=== PATIENT | male | born 1950 | race African-American/Black ===

== ENCOUNTER 2016-07-19 23:56 | Inpatient (IN) | payer MEDICARE ==
--- NOTE | ~2016-07-19 | CO ---
Unit #: [id number] #: [id number] Patient: KENNEDY YEH [id number] [address] [place], [place] [address] [id number] I MR#: [id number] NAME: KENNEDY YEH. ROOM: 310 Age: 65 Sex: M Admission Date: 07/20/2016 : 1950 Attending Physician: Sterling Hurtado M.D. Primary Care Physician: [facility]. Consultation Date: 07/20/2016 CONSULTATION REPORT REASON FOR CONSULTATION Aortic murmur. HISTORY OF PRESENT ILLNESS This is a 65-year-old male with history of end-stage renal dialysis that Dr. Carter did a heart catheterization back in 09/2013 that showed 50% stenosis in the first marginal branch of the circumflex with ejection fraction 45% and moderate aortic regurgitation, also he has history of hypertension, hyperlipidemia, nicotine abuse, who came to the emergency room with nausea, vomiting, diarrhea, or abdominal pain. The patient is on dialysis on Wednesday, , and Wednesday. Due to family issues and problems at home, he missed last and Wednesday dialysis treatment. He said he started having nausea, vomiting, and later diarrhea he has been having it for 2 days at home. He denies anyone else in the family with the symptoms. He denies any chest pain; pain in his neck, bilateral jaws, shoulders, arms, or elbow. He denies any palpitations. No dizziness, presyncope, or syncope. He did mention he had some diaphoresis with his diarrhea and epigastric abdominal pain. The patient was treated with Zofran, Protonix, morphine, one amp of D50 as well as regular insulin, bicarb, Kayexalate, calcium chloride in the emergency room, however, his symptoms eased off. On admission, the patient's BUN was 95 with a creatinine of 18.1, potassium is 6.1. EKG shows normal sinus rhythm, possible left atrial enlargement, and Q-waves noted in anteroseptal leads. CT of abdomen and pelvis shows likely acute enteritis. The patient's symptoms have improved. His diarrhea has lessened. He denies any chest pain; pain in his neck, bilateral jaws, shoulders, arms, or elbow. Denies any palpitations. No dizziness, presyncope, or syncope. Cardiology will full assist with evaluation and management. PAST MEDICAL HISTORY 1. Hypertension. 2. Hyperlipidemia. 3. End-stage renal disease, on hemodialysis, follows with Dr. Joyce. Has a history of noncompliance. 4. 10/10/[address] Carter shows LVEF of 45% with moderate aortic regurgitation with severe left ventricular hypertrophy plus 50% stenosis in the first marginal branch of the circumflex. 5. 10/10/2013, 2D echo, LVEF of 50% to 55% with moderate left ventricular hypertrophy, [id number] mitral regurgitation, mild tricuspid regurgitation, moderate aortic regurgitation. 6. 2013 cardiac cath showed mild aortic stenosis, 3+ aortic valve, and 3+ aortic regurgitation with aortic root dilatation. 7. Degenerative disk disease and arthritis. Unit #: [id number] #: [id number] Patient: KENNEDY YEH 8. Nicotine abuse. 9. Reformed alcohol abuse. Ambulates with a roller walker. Dr. Joyce initiated the patient on a dialysis treatment, which he has received today. The patient will get labs afterwards. It is noted on admission the patient's potassium was 6.1. After exam, Dr. Joyce wanted Cardiology to see the patient due to significant murmur over his aortic region. Also ordered a 2D echo. As mentioned, the patient knew that he had a regurgitation of his valve. Dr. Carter dictated on his catheterization summary that the aortic root is mildly to moderately dilated with moderate aortic regurgitation across 3+ cusp aortic valve and a trial of medical management with afterload reduction, beta blockers, and followup should be pursued and then later evaluate for possible aortic valve replacement if the symptoms did improve. PAST SURGICAL HISTORY AV shunt placement. HOME MEDICATIONS Aspirin 81 mg p.o. daily, metoprolol 50 mg p.o. b.i.d., pravastatin 80 mg p.o. daily, Sensipar 30 mg 2 tablets p.o. daily, Tums 500 mg p.o. t.i.d. ALLERGIES No known drug allergies. PHYSICAL EXAMINATION GENERAL: The patient is a 65-year-old male, in no acute respiratory distress. He is awake, alert, and oriented. VITAL SIGNS: Blood pressure on admission 165/99, this morning he is 99/66 that is during the dialysis, heart rate is in 80s to 90s, respirations 16. NECK: Trachea midline. No thyromegaly or lymphadenopathy. Conductive aortic murmur noted. HEART: S1, S2. Regular rate and rhythm. Slightly tachycardiac. Systolic murmur over aortic region and left sternal border. LUNGS: Very diminished. ABDOMEN: Slightly firm, tender with palpating, hyperactive bowel sounds. EXTREMITIES: Pedal pulses are palpable. No pedal edema. DIAGNOSTIC STUDIES LABORATORY RESULTS: Today's labs, glucose 101, BUN 95, creatinine 18.1, eGFR is 3.4, sodium 143, potassium 6.1, chloride is 99, CO2 is 20, calcium 7.3, total protein 7.7, albumin 3.8, bilirubin total 0.8, AST is 11, ALT is 8, alkaline phosphatase is 186. Note, this is from yesterday before dialysis. Next set is 1.1. WBCs 5.6, hemoglobin 13.6, hematocrit 41.4, and platelets is 235. IMAGING STUDIES: CT of abdomen and pelvis shows evidence of acute enteritis, extensive arterial calcifications within the abdomen and pelvis, multilevel advanced degenerative disk disease with at least moderate central canal stenosis in the L2 through L3, bilateral renal atrophy. CARDIOVASCULAR STUDIES: EKG shows normal sinus rhythm with ventricular rate of 78 beats per minute, left atrial enlargement, left ventricular hypertrophy, septal Q-waves, poor R-wave progression, nonspecific ST-T wave abnormalities, peak T-waves in anterolateral leads. IMPRESSION 1. Nausea, vomiting, diarrhea, acute enteritis. Unit #: [id number] #: [id number] Patient: KENNEDY YEH 2. End-stage renal disease, on hemodialysis. 3. Aortic regurgitation and mitral regurgitation. Last 2D echo on 10/10/2013 shows left ventricular ejection fraction of 50% to 55% with [id number]-tp-zefrra mitral regurgitation, moderate aortic regurgitation. 4. 10/10/2013 cardiac cath shows LVEF of 45%, moderate aortic regurgitation with 50% stenosis in the first marginal branch of the circumflex. 5. Hypertension. 6. Hyperlipidemia. 7. Nicotine abuse. 8. Reformed alcohol use. 9. Degenerative disk disease and arthritis. PLAN 1. Cardiology consulted to re-evaluate the patient's significant systolic murmur over aortic region. The patient has known moderate aortic regurgitation that was found on his echo and cardiac cath a couple of years ago. Also svepszas-cy-qixniz mitral regurgitation. We will reassess the severity of the mitral and aortic regurgitation and give recommendations after 2D echo has been performed. 2. On exam, there were no signs or symptoms of acute congestive heart failure or unstable angina. Cardiac enzymes are negative. EKG does not show anything acute. 3. The patient had dialysis today. We will draw labs post dialysis to monitor his electrolyte status. 4. Dr. Joyce is managing his dialysis. 5. His gastroenteritis has improved. He is tolerating oral food without any nausea, vomiting, or diarrhea today. 6. Continue the patient on metoprolol and aspirin and statin. He is on SCDs for DVT prophylaxis. 7. Further recommendations pending per Dr. Werner after she reviews his 2D echo. Dictated by... Dario Wynn/dalia TD: 07/21/2016 01:08 JOB #: [id number] CONSULTATION REPORT X Faviola Zamudio APRN CONSULTATION REPORT
--- NOTE | ~2016-07-19 | CO ---
Unit #: [id number] #: [id number] Patient: KENNEDY YEH [id number] [facility]. [address] [address] [id number] I MR#: [id number] NAME: KENNEDY YEH. ROOM: 310 Age: 65 Sex: M Admission Date: 07/20/2016 : 1950 Attending Physician: Sterling Hurtado M.D. Primary Care Physician: [facility]. CONSULTATION REPORT REASON FOR CONSULTATION Significant hyperkalemia. HISTORY OF PRESENT ILLNESS The patient is a 65-year-old male with significant past medical history of valvular heart disease, hypertension, hyperlipidemia, and diastolic dysfunction, mainly came to the ER with nausea, vomiting, and diarrhea going on for the last few days. Also has some increased weakness, decreased p.o. intake too. The patient has lost significant weight because of these things. The patient also has some diaphoretic. No swelling of the lower extremity, but there is some shortness of breath. The patient is on hemodialysis Tuesdays, , Wednesday and last dialysis was almost a week back. At the time of admission, the patient has potassium of 6.2 and BUN 95, creatinine was 18. When I saw the patient, he was already on dialysis. No other complaints. At this time, the patient's hyperkalemia was last night treated with sodium bicarbonate, Kayexalate, and calcium chloride. PAST MEDICAL HISTORY Significant for end-stage renal disease, valvular heart disease, hyperlipidemia, and diastolic dysfunctions. PAST SURGICAL HISTORY Significant for dialysis access placement. SOCIAL HISTORY The patient lives at home with his daughter. He is not drinking anymore. FAMILY HISTORY Noncontributory. ALLERGIES He is allergic to contrast. MEDICATIONS Home medications were reviewed and the patient is on Lopressor, pravastatin, and Sensipar. REVIEW OF SYSTEMS Already explained in the history of present illness. PHYSICAL EXAMINATION GENERAL: The patient is an elderly male, who was seen to have lost some weight with some temporal wasting, not in any acute Unit #: [id number] #: [id number] Patient: KENNEDY YEH distress. VITAL SIGNS: Last blood pressure is 99/66, pulse 96, temperature 97, respiratory rate 16. HEAD AND NECK: Pupils are reactive to light. Extraocular movements are intact. Mucous membrane is moist. NECK: Supple. CHEST: The patient has bilateral air entry with some crackles at the bases. HEART: Regular rate and rhythm with some ejection systolic murmur, which is very prominent. ABDOMEN: Soft, nontender. EXTREMITIES: Trace edema, otherwise unremarkable. Peripheral pulses are palpable. NEUROLOGIC: Grossly nonfocal. SKIN: Normal. DIAGNOSTIC STUDIES LABORATORY RESULTS: Showed the patient's creatinine is 18, potassium is 6.1, bicarb is 20. Calcium 7.3. Alkaline phosphatase is 186. Hemoglobin is 13. ASSESSMENT AND PLAN 1. Hyperkalemia. 2. Congestive heart failure with significant history of valvular heart disease. 3. End-stage renal disease. 4. Gastroenteritis with nausea, vomiting, diarrhea. DISCUSSION At this time, continue hemodialysis. We will get the Cardiology consult. We will repeat the echocardiogram. Follow up with the patient labs tomorrow morning. If the patient's echo has not significantly changed, Cardiology can take care of the patient for further evaluation. Next hemodialysis will be Wednesday. Thank you for letting me to evaluate regarding this patient. Dictated by... Juventino Hussein/dalia TD: 07/21/2016 03:26 JOB #: [id number] CONSULTATION REPORT X Héctor Joyce MD CONSULTATION REPORT
--- NOTE | ~2016-07-19 | EKG ---
PATIENT: KENNEDY YEH UNIT #: [id number] Ventricular Rate: 78 BPM Atrial Rate: 78 BPM P-R Interval: 154 ms QRS Duration: 88 ms Q-T Interval: 420 ms QTC Calculation(Bezet): 478 ms P [place]rea: 58 degrees Calculated R [place]: -26 degrees Calculated T [place]: 69 degrees Diagnosis Line: Normal sinus rhythm Diagnosis Line: Possible Left atrial enlargement Diagnosis Line: Cannot rule out Anteroseptal infarct (cited on or Diagnosis Line: before 19-OCT-2009) Diagnosis Line: Borderline ECG Diagnosis Line: When compared with ECG of 17-OCT-2013 05:48, Diagnosis Line: Questionable change in initial forces of Anterior Diagnosis Line: leads Diagnosis Line: Nonspecific T wave abnormality no longer evident Diagnosis Line: in Inferior leads Diagnosis Line: T wave inversion no longer evident in Diagnosis Line: Anterolateral leads Diagnosis Line: QT has shortened Diagnosis Line: Confirmed by JAVIER INFANTE MD ([id number]) on 07/20/2016 Diagnosis Line: 7:09:09 AM INTERPRETING MD: ARELIS ORDONEZ
--- NOTE | ~2016-07-19 | A ---
[facility] Nutrition Therapy DATE: 07/20/16 Patient: KENNEDY YEH Physician: EMILY Address: [address] Room/Bed: [address] [place] [address], Zip: [place] [address] Admit Date: 07/20/16 Date of : [birth year] Height: 5 9 Weight: 135 61.23 NUTRITIONAL ASSESSMENT: REASON: 1 POINTS NUTRITION SCREEN RISK RE: EATING POORLY 65 yo male admitted for n/v/d, hyperkalemia PMH: ESRD on HD, HTN, HLD, CHF, valvular heart disease, chronic anemia, CAD Anthropometrics: HT: 69" Adm wt: 54 kg BMI: 17.6 IBW: 72.7 kg, 74% IBW Labs: K+ 6.1 Cl- 99 BUN 95 Creat 18.1 Ca++ 7.3 GFR 3.4 Meds: Lipitor, Tums, NaCl I/O & Bowel function: none available, last BM 07/19 Skin Integrity: Shunt ANGELA Edema: none available Estimated Nutrition Needs: Increased due to low body weight and ESRD on HD Diet: Renal Assessment: Chart reviewed, events noted. RD spoke with the pt at bedside. Pt's HD RN at bedside reportedly weighed the pt this AM, and he weighed 54 kg (7.2 kg less than admission weight in [facility]). Pt presents underweight with BMI of 17.6 and 74% IBW. Pt reports that his weight has been declining for quite some time, and he is eating less due to decreased appetite. RD stressed the importance of adequate protein-calorie intake, and the pt voiced understanding. RD suggested smaller, more frequent meals and Nepro supplements. Pt is agreeable to Nepro BID, and actually already had one at bedside. Pt was working on his lunch at time of RD visit, had consumed ~30% so far per RD observation. Dx: Underweight RT increased nutrient needs, decreased appetite AEB BMI 17.6, 84% IBW, decreased intake reported by patient. Intervention: 1. Renal diet 2. Nepro supplements BID Monitoring, Evaluation and Goals: 1. Oral intake; tolerate >50-75% of meals and supplements 2. Labs; WNL [facility] Nutrition Therapy DATE: 07/20/16 Patient: KENNEDY YEH Physician: EMILY Address: [address] Room/Bed: [address] [place] [address], Zip: [place] [address] Admit Date: 07/20/16 Date of : [birth year] Height: 5 9 Weight: 135 61.23 3. Weight; promote weight gain, prevent weight loss 4. SKin; prevent breakdown 5. GI; promote bowel regularity Recommendations: 1. Continue renal diet as tolerated. 2. Nepro supplements (vanilla) BID for supplemental nutrition. 3. Pt would benefit from 6 small meals (smaller, more frequent meals), however, he declined at this time. Pt is at moderate nutritional risk. RD will follow hospital course. Respectfully, SHINE THORNTON, TARAN, LD [employer] [facility] cc: client file
--- NOTE | ~2016-07-19 | HP ---
Unit #: [id number] #: [id number] Patient: KENNEDY YEH [id number] [facility]. [place], [place] [address] [id number] I MR#: [id number] NAME: KENNEDY YEH. ROOM: 310 Age: 65 Sex: M Admission Date: 07/20/2016 : 1950 Attending Physician: Sterling Hurtado M.D. Primary Care Physician: [facility] HISTORY AND PHYSICAL CHIEF COMPLAINT Nausea, vomiting, and diarrhea. HISTORY OF PRESENT ILLNESS The patient is a 65-year-old male with past medical history of end-stage renal disease on dialysis Wednesday//Wednesday, valvular heart disease, essential hypertension, hyperlipidemia, diastolic dysfunction who presented to the emergency department due to nausea, vomiting, and diarrhea for two days. The patient states that due to family affair he had missed his and Wednesday dialysis and started to have symptoms of nausea, vomiting, diarrhea, and epigastric abdominal pain. Patient tells me that due to those symptoms, he presented to the emergency department. The patient also states that he has diaphoresis with the episodes. At this time, the patient states that they gave him something in the emergency department which had resolved all of his symptoms and he is symptom free at this time. He is followed by Dr. Joyce for his end-stage renal disease. Of note, he was given Zofran, Protonix, morphine, one amp of D50, as well as, regular insulin, bicarbonate, Kayexalate, calcium chloride in the emergency department. PAST MEDICAL HISTORY 1. Admitted to [facility] on December 26, 2012, for hyperkalemia as well as September 2013. 2. End-stage renal disease on dialysis, followed by Dr. Joyce. 3. Essential hypertension. 4. Valvular heart disease. 5. Hyperlipidemia. 6. Diastolic dysfunction. On echo on October 05, 2012, it showed impaired left ventricular relaxation, left ventricular systolic function with (1) . There was xzqi-fk-qqcwegag aortic regurgitation and trace tricuspid regurgitation. PAST SURGICAL HISTORY Denies all past surgical history except for last upper extremity dialysis access placement. SOCIAL HISTORY Patient states he lives at home with his daughter and her boyfriend. The patient admits to smoking currently half pack a day for more than 20 years. States that he quit drinking alcohol a couple years ago. Denies any other illicit drugs. Denies IV drugs specifically. FAMILY HISTORY Patient states family history is positive for essential hypertension, Unit #: [id number] #: [id number] Patient: KENNEDY YEH diabetes. Last H and P, he admitted to his mother having CVA. ALLERGIES He is allergic to contrast. He gets itchiness with it. HOME MEDICATIONS 1. The patient states he uses aspirin 81 mg daily. 2. Lopressor 50 mg twice daily. 3. Pravastatin, cannot recall a dose. From past discharge summary, says 40 mg orally daily. 4. Sensipar 30 mg orally daily. 5. Tums. REVIEW OF SYSTEMS Ten-point review of systems is negative except those indicated in HPI. At the time of my assessment, the patient states that all of his symptoms of nausea, vomiting, diarrhea, and epigastric pain had resolved. DIAGNOSTIC STUDIES LABORATORY: CBC: WBC 5.6, RBC 4.36, hemoglobin 13.6, hematocrit 41.4, MCV is 94.9, MCH is 31.3, MCHC 33, RDW 16.8, platelets 235,000, MPV is 8.6. Chem-7: Chloride 99, CO2 is 20, glucose 101, BUN 95, creatinine 18.8, calcium 7.3. AST 11, ALT 8, alkaline phosphatase 186, total bilirubin 0.8, total albumin 3.8, total protein 7.7, lipase 31, amylase 43. Lactic acid was 1.1. IMAGING: No imaging was done. CARDIOVASCULAR: EKG was done which revealed normal sinus rhythm with possible left atrial enlargement. PHYSICAL EXAMINATION VITAL SIGNS: Temperature is 98.2, pulse is 80, respiratory rate 19, blood pressure 149/82. GENERAL: The patient is an -Algerian male who is alert and oriented x4 in no apparent distress. He is alert, interactive, and appropriate. HEENT: The head is atraumatic. Mucous membranes are moist. There is poor dentition. NECK: Supple. Trachea is midline. CARDIOVASCULAR: Regular rate and rhythm. LUNGS: Clear to auscultation bilaterally with no increased work of breathing. ABDOMEN: Soft, nontender, nondistended with positive bowel sounds. No guarding. No rebound. EXTREMITIES: Nontender with no pedal edema. NEUROLOGIC: The patient is oriented x4. There are no focal deficits. SKIN: Skin of the extremities is warm and dry. ASSESSMENT The patient is a 65-year-old male with: 1. Hyperkalemia. 2. Acute on chronic renal failure due to noncompliance from missing his last two dialyses. 3. Likely acute gastroenteritis which has resolved at this time. 4. Coronary artery disease, single vessel, stable, no chest pain. 5. Chronic anemia, stable. Hemoglobin and hematocrit is as detailed above. Unit #: [id number] #: [id number] Patient: KENNEDY YEH 6. Cardiac valvular disease with moderate aortic regurgitation and otsexfto-am-sntcje mitral regurgitation, stable at this time without any peripheral edema. PLAN Dr. Joyce and Dr. Bates have been consulted for dialysis. We will follow their lead. Will check stool for Clostridium difficile. Dictated by Marielle Jain PA-C for Juventino Steele TD: 07/20/2016 10:03 JOB #: [id number] HISTORY AND PHYSICAL X X HISTORY AND PHYSICAL
--- NOTE | ~2016-07-19 | CT4 ---
[facility] A Service of [facility] & [facility] RADIOLOGY TEXT RESULTS PATIENT: KENNEDY YEH LOCATION: [facility] 310- : 52 UNIT #: [id number] AGE: [address]: Sterling Hurtado MD SEX: M ORDER DR: [id number] [facility] [address] [place], [place] [address] [id number] I MR#: [id number] Acc #: [id number] NAME: KENNEDY YEH. : 1950 SEX: M STUDY DATE/TIME: 07/20/2016 1:25 UNIT: C3A PCU ROOM: 310 STUDY DESCRIPTION: CT Abd and Pelv Wo Cont Attending Physician: Sterling Hurtado M.D. Ordering Physician: Jennie Cha M.D. Primary Care Physician: [facility] MEDICAL IMAGING REPORT This report is preliminary unless electronic signature is present EXAM CT abdomen and pelvis without IV contrast. COMPARISON CT chest dated October 12, 2013. INDICATIONS 65-year-old male with lower abdominal pain, nausea, emesis and diarrhea for [address] exam was performed with one or more of the following radiation dose reduction techniques: automatic exposure control, adjustment of mA and/or kV according to patient size, and iterative reconstruction. FINDINGS Axial CT imaging of the abdomen and pelvis was performed without IV contrast. Coronal and sagittal reformats were constructed. Lack of IV contrast limits evaluation of adenopathy, vasculature. There is a tiny fat-containing umbilical hernia. There are diffuse arterial calcification in the abdomen and pelvis with extension into the penis as well. The bones appear diffusely sclerotic, possibly sequela of chronic kidney disease. There is severe degenerative endplate change seen at L2-L3 and at the inferior endplate of L4 with moderate degenerative endplate disease at L5-S1. There is marked degenerative facet disease at L4-L5. Large posterior disc osteophyte complex is seen at L2-L3 causing at least moderate central canal narrowing. There are small posterior disc protrusions at L3-L4 through L5-S1. There is mild cardiomegaly. There is a small hiatal hernia. Unenhanced liver, gallbladder, spleen and adrenal glands are unremarkable. There is bilateral renal atrophy. There are multiple exophytic low-density lesions of the right kidney which are too small to characterize, favoring exophytic cysts. There is an exophytic simple cyst inferior pole left kidney measuring up to 6 mm. Multiple other exophytic low-density lesions extending from the left kidney STS. [facility] A Service of [facility] RADIOLOGY TEXT RESULTS PATIENT: KENNEDY YEH LOCATION: C3A 310-01 : 52 UNIT #: [id number] AGE: [address]: Sterling Hurtado MD SEX: M ORDER DR: consistent with simple cysts measuring up to 1.4 cm on the left. Incidental note of a splenule, normal anatomic variant. There is no hydronephrosis or hydroureter. No renal or ureteral calculus. Urinary bladder is unremarkable. Prostate gland is not well seen on this noncontrast exam. There is apparent fluid filling of the distal sigmoid colon and rectum. No evidence of acute appendicitis. There is air-fluid level and abnormal distension of proximal small bowel loops in the left upper quadrant of the abdomen, largest of which measures up to 3.5 cm. Proximal to this the jejunum appears abnormally thickened but this is diffuse in nature and may be within normal limits for this patient. There is no definite transition point of the distal small bowel to suggest a mechanical obstruction although this cannot entirely be excluded. The small bowel appears to taper distally to normal caliber. There is grossly stable diffuse prominence of the pancreatic duct measuring up to 4 mm. Diffuse arterial calcifications in the abdomen and pelvis with involvement of the abdominal aorta as well as the proximal, superior mesenteric and renal arteries. No free fluid in the abdomen or pelvis. No pneumoperitoneum. No visible adenopathy. IMPRESSION 1. There is mild abnormal dilatation with internal air-fluid level of proximal small bowel in the mid upper abdomen. This tapers distally to normal caliber and may reflect normal peristalsis or an acute ongoing enteritis. There is fluid filling of the rectum and distal sigmoid colon- other evidence suggestive of an acute enteritis. Proximal small bowel obstruction is thought to be unlikely but not entirely excluded. Clinical correlation recommended. 2. Extensive arterial calcifications within the abdomen and pelvis even extending into the penis, likely sequela of longstanding end-stage renal disease. 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 Clinical correlation recommended. 3. There are multilevel advanced degenerative disc and facet changes as well as degenerative endplate change of the lumbar spine as described in the body of the report. There are multiple level posterior disc protrusion with a large posterior disc osteophyte complex at L2-L3 which is causing at least moderate central canal stenosis. 4. Mild cardiomegaly. Very small hiatal hernia. 5. Stable prominence of the pancreatic duct measuring up to 4 mm, nonspecific finding. Pancreas is not well evaluated on current study without IV contrast. 6. Bilateral renal atrophy with multiple low-density lesions in the kidneys, not well characterized without IV contrast. Statistically these most likely represent multiple cysts. 7. Questionable thickening of the proximal jejunum upstream to the dilated small bowel. This is another finding that would suggest an acute enteritis. 1. [facility] A Service of [facility] RADIOLOGY TEXT RESULTS PATIENT: KENNEDY YEH LOCATION: [facility] 310-01 : 52 UNIT #: [id number] AGE: [address]: Sterling Hurtado MD SEX: M ORDER DR: Dictated by... Sharad Farfan M.D. THIS IS AN ELECTRONICALLY VERIFIED REPORT Sharad Farfan M.D. at 07/27/2016 10:04 AM Michael TD: 07/20/2016 09:45 JOB #: [id number] MEDICAL IMAGING REPORT COPY
--- NOTE | ~2016-07-19 | DS ---
Unit #: [id number] #: [id number] Patient: KENNEDY YEH [id number] [address] [place], [place] [address] [id number] I MR#: [id number] NAME: KENNEDY YEH. ROOM: 310 Age: 66 Sex: M Admission Date: 07/20/2016 : 1950 Discharge Date: 07/22/2016 Attending Physician: Sterling Hurtado M.D. Primary Care Physician: [facility]. DISCHARGE SUMMARY DISCHARGE DIAGNOSES 1. Acute on chronic renal failure in an end stage renal disease patient, secondary to noncompliance. Patient had missed the last two dialysis appointments. 2. Acute gastroenteritis with nausea, vomiting and diarrhea. 3. Known valvular heart disease, stable at this time. 4. Chronic anemia. 5. Hypercalcemia. 6. Coronary artery disease, single vessel disease. 7. Compliance, the patient had missed two previous dialysis appointments. CONSULTANTS Dr. Bates of nephrology and Dr. Werner of cardiology. PROCEDURES The patient had been receiving dialysis daily since he has been in here. DIAGNOSTIC STUDIES IMAGING STUDIES: Patient had a CT abdomen and pelvis on 07/20/2016 with impression of abnormal dilation of internal air-filled fluid of proximal small bowel in the mid upper abdomen, tapers distally. Normal caliber and reflects normal peristalsis or an acute ongoing enteritis. There is fluid of the rectum and distal sigmoid colon, suggesting acute enteritis. Extensive arterial calcifications within the abdomen and pelvis even extending into the penis, likely sequelae of longstanding end stage renal disease. Multilevel advanced degenerative disc and facet changes, as well as degenerative endplate change of the lumbar spine as described in the body of the report. Mild cardiomegaly. Very small hiatal hernia. Stable prominence of the pancreatic duct measuring up to 4 mm, nonspecific findings. Pancreas is not well evaluated from this CT given no IV contrast. Bilateral renal atrophy with mild low density lesions in the kidneys, not well characterized without IV contrast. Questionable thickening of the proximal jejunal upstream to the dilated small bowel, findings suggestive of acute enteritis. CARDIOLOGY STUDIES: The patient had a 2D echo performed, which revealed left ventricular systolic function is normal with visually estimated ejection fraction of 50% to 55%. Moderate concentric left ventricular hypertrophy, mildly dilated left atrium. Severe aortic regurgitation is noted. Mild mitral regurgitation is present. Mild tricuspid regurgitation is present. Mild pulmonic valvular regurgitation is present. Right ventricular systolic pressure is 36 mL. No evidence of pericardial effusion. Unit #: [id number] #: [id number] Patient: KENNEDY YEH LABORATORY STUDIES: On the day of discharge the patient's labs includes BMP with glucose of 58, BUN 42, creatinine 12.1, sodium 137, potassium 4.6, chloride 97, CO2 26, calcium 6.7. CBC with WBC of 6.6, rbc's 3.91, hemoglobin 12.1, hematocrit 37.1, MCV is 9.0, MCH 30.9, MCHC is 32.5, RDW is 16.2, platelet is 196, and PT is 3.5. I had ordered stool for C. diff but no samples were provided. HOSPITAL COURSE The patient is a 65-year-old male with a past medical history of end stage renal disease on dialysis, Wednesday, and Wednesday, valvular heart disease, essential hypertension, hyperlipidemia, diastolic dysfunction, presents to emergency department due to nausea, vomiting, and diarrhea for two days prior to hospitalization. Patient states they had a family affair, therefore, he missed his and Wednesday dialysis appointment and has had symptoms of nausea, vomiting, diarrhea, and epigastric pain since then. After he presented to the emergency department and was given "some medicine," which on chart is noted to be Zofran, protonic, morphine, amp of D5, insulin, bicarb, Kayexalate, and calcium chloride. He told me that his symptoms have resolved and was feeling much better the next day. He tells me is back to baseline due to his end stage renal disease and presenting labs of acute on chronic renal failure with BUN 95, creatinine 18.8, potassium of 6.1. He was admitted and Dr. Bates of nephrology had seen immediately after this and patient has been getting dialysis since admission every day due to his valvular disease and symptoms of nausea, vomiting, diarrhea; therefore, cardiology was consulted. He had a repeat echo to re-evaluate his valves with findings as stated above. At this time patient is quite stable and he is ready to be discharged home. DISCHARGE CONDITION Stable. I am asking the nurse to check on his dialysis appointment to see when will he need to show up for next dialysis appointment. DISCHARGE FOLLOWUP Followup with Dr. Werner in her office on 10/09/2016 at 11:15. Followup with primary care physician within one to two weeks at this appointment. DISCHARGE DIET Heart healthy and patient should continue with a low phosphorus, low potassium, and low sodium renal diet. DISCHARGE ACTIVITIES Resume activities as was prior to hospitalization as tolerated with ambulating every day. DISCHARGE MEDICATIONS 1. Toprol XL 50 mg orally twice daily. 2. Pravastatin 80 mg orally daily. 3. Sensipar 60 mg orally daily. 4. Aspirin 81 mg orally daily. 5. PhosLo 1334 mg orally 3 times daily with meals. 6. Stop the Tums. 7. Patient can followup vitamin D level with Dr. Bates, as well as phosphorus level with Dr. Bates. 8. Patient needs to have calcium carbonate 500 mg 2 tablets every 8 hours for the next two days, per nephrologies recommendations. Unit #: [id number] #: [id number] Patient: KENNEDY YEH Dictated by... Marielle Jain PA-C for Juventino Steele/sebastián TD: 07/24/2016 08:45 JOB #: [id number] DISCHARGE SUMMARY X X DISCHARGE SUMMARY
[~2016-07-19 23:56] MED LIST: ADVIL200 M2 PO; AMOXICILLIN500 M1 PO; ASPERDRINK81 MG PO; ASPIRIN81 M1 PO; BACTRIM DS TABL1 TA2 PO; CALCIUM500 MG PO; CLARITHROMYCIN500 MG PO; COMBIVENT MININEB INH; HYDRALAZINE HCL25 MG PO; HYDRALAZINE HCL50 MG PO; IBUPROFEN800 MG PO; ISOSORBIDE MONO20 MG PO; LISINOPRIL20 MG PO; LISINOPRIL5 MG PO; METOPROLOL TAR25 MG PO; METOPROLOL TART25 MG PO; NORVASC10 MG PO; PHOSLO667 MG PO; PRAVACHOL80 MG PO; PRAVASTATIN SOD40 MG PO; PREDNISONE10 MG/DOSE PO; PRINIVIL20 M1 PO; PROTONIX PO; SENSIPAR30 MG PO; SYMBICORT INH; TOPROL XL 50 MG50 M1 PO; TUCKS MEDICATE1 EACH TP; VICODIN 5/1 TAB 5/50 PO; [UNRECOGNIZED DRUG - CODE] PO
[2016-07-20] LABS: BASOPHIL% 0.4 % (0-2.5); EOSINOPHIL% 0.7 % (0.0-7.0); HEMATOCRIT 41.4 % (38.0-50.0); HEMOGLOBIN 13.6 gm/dL (13.0-16.0); LYMPHOCYTE# 0.7 X10e3 (1.0-3.5); LYMPHOCYTE% 12.5 % (17.0-45.0); MEAN CELL VOLUME 94.9 FL (83-96); MEAN CORPUSCULAR HEMOGLOBIN 31.3 PG (28-34); MEAN PLATELET VOLUME 8.6 FL (6.5-11.5); MONOCYTE# 0.2 X10e3 (0-1.0); MONOCYTE% 4.4 % (3.0-12.0); NEUTROPHIL# 4.6 X10e3 (1.5-7.1); PLATELET COUNT 235 X10e3 (140-420); RED BLOOD COUNT 4.36 X10e (3.90-5.60); RED CELL DISTRIBUTION WIDTH 16.8 % (11.0-15.5); WHITE BLOOD COUNT 5.6 X10e3 (4.0-10.5)
[2016-07-20 00:02] LABS: DIFF IND NO
[2016-07-20 00:40] LABS: ALBUMIN SERUM 3.8 g/dL (3.5-5.0); BILIRUBIN, DIRECT 0.1 mg/dL (0.0-0.2); BILIRUBIN,INDIRECT 0.7 mg/dL (0.0-0.9); BILIRUBIN,TOTAL 0.8 mg/dL (0.2-2.0); BUN/CREATININE RATIO 5.24; CALCIUM SERUM 7.3 mg/dL (8.4-10.2); CREATININE SERUM 18.1 mg/dL (0.6-1.4); GLOM FILT RATE Estimated 3.4 mL/min (>60); PROTEIN TOTAL SERUM 7.7 g/dL (6.0-8.3)
[2016-07-20 00:42] LABS: POTASSIUM 6.1 mmol/L (3.5-5.1)
[2016-07-20] MEDS ORDERED: ASPIRIN81 MG PO (01:14)
[2016-07-20] MEDS ORDERED: METOPROLOL SUCC50 MG PO (01:15)
[2016-07-20] MEDS ORDERED: PRAVASTATIN SOD80 MG PO (01:15)
[2016-07-20] MEDS ORDERED: SENSIPAR30 M1 PO (01:16)
[2016-07-20] MEDS ORDERED: TUMS500 M1 PO (01:16)
[2016-07-20 17:00] LABS: CALCIUM SERUM 7.7 mg/dL (8.4-10.2)
[2016-07-20 17:01] LABS: BUN/CREATININE RATIO 3.49; CREATININE SERUM 8.3 mg/dL (0.6-1.4); GLOM FILT RATE Estimated 8.4 mL/min (>60); POTASSIUM 3.8 mmol/L (3.5-5.1)
[2016-07-21 05:14] LABS: HEMATOCRIT 37.8 % (38.0-50.0); HEMOGLOBIN 12.6 gm/dL (13.0-16.0); MEAN CELL VOLUME 94.5 FL (83-96); MEAN CORPUSCULAR HEMOGLOBIN 31.6 PG (28-34); MEAN CORPUSCULAR HGB CONC 33.4 g/dL (30-36); MEAN PLATELET VOLUME 8.5 FL (6.5-11.5); RED CELL DISTRIBUTION WIDTH 16.1 % (11.0-15.5); WHITE BLOOD COUNT 6.4 X10e3 (4.0-10.5)
[2016-07-21 06:43] LABS: ALBUMIN SERUM 3.2 g/dL (3.5-5.0); BILIRUBIN,TOTAL 0.7 mg/dL (0.2-2.0); BUN/CREATININE RATIO 3.53; CALCIUM SERUM 7.4 mg/dL (8.4-10.2); CREATININE SERUM 9.9 mg/dL (0.6-1.4); GLOM FILT RATE Estimated 6.9 mL/min (>60); MAGNESIUM 2.4 mg/dL (1.6-3.0); PHOSPHOROUS 7.4 mg/dL (2.5-4.6); POTASSIUM 4.9 mmol/L (3.5-5.1); PROTEIN TOTAL SERUM 6.5 g/dL (6.0-8.3)
[2016-07-22 05:59] LABS: HEMATOCRIT 37.1 % (38.0-50.0); HEMOGLOBIN 12.1 gm/dL (13.0-16.0); MEAN CORPUSCULAR HEMOGLOBIN 30.9 PG (28-34); MEAN CORPUSCULAR HGB CONC 32.5 g/dL (30-36); MEAN PLATELET VOLUME 8.5 FL (6.5-11.5); RED BLOOD COUNT 3.91 X10e (3.90-5.60); RED CELL DISTRIBUTION WIDTH 16.2 % (11.0-15.5); WHITE BLOOD COUNT 6.6 X10e3 (4.0-10.5)
[2016-07-22 06:45] LABS: BUN/CREATININE RATIO 3.47; CALCIUM SERUM 6.7 mg/dL (8.4-10.2); CREATININE SERUM 12.1 mg/dL (0.6-1.4); GLOM FILT RATE Estimated 5.5 mL/min (>60); POTASSIUM 4.6 mmol/L (3.5-5.1)
[2016-07-22] MEDS ORDERED: PHOSLO667 MG PO (16:28)
[2016-07-22] MEDS ORDERED: OS-CAL 500500 MG PO (16:29)
== END 2016-07-22 18:30 | disposition home or self-care (01) | DRG 391 ==
LOC: CED 23:56 → CEDOF 07-20 02:31 → C3A PCU 07-20 05:50
PROVIDERS: Internal Medicine; Internal Medicine Nephrology; Student in an Organized Health Care Education/Training Program
PROC: 5A1D00Z (ICD-10-PCS; 2016-07-20)
PROC: B24BYZZ Ultrasonography of Heart with Aorta using Other Contrast (ICD-10-PCS; principal; 2016-07-21)
DX: K52.9 Noninfective gastroenteritis and colitis, unspecified (principal); N18.6 End stage renal disease; N17.9 Acute kidney failure, unspecified; E83.39 Other disorders of phosphorus metabolism; E83.51 Hypocalcemia; I12.0 Hypertensive chronic kidney disease with stage 5 chronic kidney disease or end stage renal disease; Z99.2 Dependence on renal dialysis; E78.5 Hyperlipidemia, unspecified; Z91.041 Radiographic dye allergy status; Z79.82 Long term (current) use of aspirin; E87.5 Hyperkalemia; I08.0 Rheumatic disorders of both mitral and aortic valves; M19.90 Unspecified osteoarthritis, unspecified site; Z91.15 Patient's noncompliance with renal dialysis; I25.10 Atherosclerotic heart disease of native coronary artery without angina pectoris; D63.1 Anemia in chronic kidney disease; M51.36 Other intervertebral disc degeneration, lumbar region
CPT/HCPCS: 36415; 74176; 80048; 80053; 80061; 80076; 82150; 82306; 83605; 83690; 83735; 84100; 84443; 85025; 85027; 93005; 93306; 94640; 96374; 96375; 99285; C9113; J2270; J2405

== ENCOUNTER 2016-12-10 17:46 | Inpatient (IN) | payer MEDICARE ==
[~2016-12-10] VITALS: Ht 175.3 cm; Wt 64.8 kg
--- NOTE | ~2016-12-10 | HP ---
Unit #: [id number] #: [id number] Patient: KENNEDY YEH [id number] [facility] [place], [place] [address] [id number] MR#: [id number] NAME: KENNEDY YEH. ROOM: 561 Age: 66 Sex: M Admission Date: 12/10/2016 : 1950 Attending Physician: Dilma Jorge M.D. Primary Care Physician: [facility]. HISTORY AND PHYSICAL CHIEF COMPLAINT Missed dialysis with hyperkalemia, nausea, vomiting, diarrhea. HISTORY This pleasant 66-year-old male with hypertension, hyperlipidemia, nonobstructive CAD and renal failure, is admitted for missed dialysis. The patient usually receives dialysis Tuesdays, and Saturdays. It is now evening. He missed his Wednesday and Wednesday dialysis. Apparently, there were some family issues. Yesterday he developed nausea, vomiting, weakness, abdominal cramps and diarrhea and was unable to go to dialysis today. He presented to this emergency department tonight hypertensive with a blood pressure of 178/102. Labs are notable for hyperkalemia, potassium of 7.1. In the ER, he was given Zocor, an amp of sodium bicarb, and amp of calcium chloride. A call was made to nephrology who has called in stat dialysis orders. The patient denies shortness of breath with the above or edema. PAST MEDICAL HISTORY 1. Essential hypertension. 2. Hyperlipidemia. 3. End stage renal failure, on hemodialysis. Followed by Dr. Joyce. The patient receives dialysis Tuesdays, and Saturdays. Has a working left arm AV shunt or graft. 4. Cardiac catheterization 09/2013 showing 50% stenosis of the first marginal branch of the circumflex. Last echo performed in July - ejection fraction 50% to 55%, mild MR, severe AR, mild TR, mild KS. Right ventricular systolic pressures of 36 mmHg. 5. DJD and arthritis. 6. Left arm AV shunt placement. ALLERGIES IV contrast. HOME MEDICATIONS Uncertain. I believe: 1. Aspirin 81 mg daily. 2. Toprol XL 50 mg b.i.d. 3. PhosLo with meals. 4. Calcium. FAMILY HISTORY Negative for CAD. Unit #: [id number] #: [id number] Patient: KENNEYD YEH SOCIAL HISTORY The patient lives alone in assisted living. He smokes one half pack per day of tobacco, does not drink alcohol. REVIEW OF SYSTEMS Notable for nausea, vomiting, diarrhea, renal failure, hypertension, hyperlipidemia, DJD, CAD, valvular heart disease, above mentioned surgery, tobacco use. All other systems were reviewed and are negative. PHYSICAL EXAMINATION GENERAL APPEARANCE: Pleasant 66-year-old, thin male, currently in no acute distress. VITAL SIGNS: Temperature 98.3, pulse 88, respirations 18, blood pressure 178/102. O2 saturation is 99% on room air. HEENT: Eyes PERRLA. Extraocular muscles are intact. Pharynx is benign with poor dentition. NECK: Supple without adenopathy or thyromegaly. CHEST: Fairly clear. CARDIAC: Normal S1 and S2 with a loud systolic murmur best heard at the right upper sternal border. ABDOMEN: Bowel sounds are present. No hepatosplenomegaly, tenderness or masses. EXTREMITIES: Without edema. Pedal pulses are present. No ulcers on the feet. The patient has a left upper arm AV shunt with good thrill and good bruit. NEUROLOGIC: The patient is awake, alert, oriented. Cranial nerves are intact. Equal strength throughout. DIAGNOSTIC STUDIES LABORATORY: Hematocrit is 37.8, normal white count and platelet count. SMA-12 - glucose 121, BUN 90, creatinine is 19.7, potassium is 7.1, chloride 96, CO2 19, calcium 8.3, alk. phos. 173. Cardiac markers are negative. IMAGING: Acute abdominal series including chest x-ray - no acute disease. CARDIOVASCULAR: EKG - sinus rhythm, rate 85. Nonspecific ST wave abnormalities. Peaked T waves which were also noted previously. ASSESSMENT 1. Missed hemodialysis x2 sessions: Patient now presents with hyperkalemia and uremic symptoms. 2. Nausea, vomiting and diarrhea, possibly related to patient's uremia versus gastroenteritis. 3. Nonobstructive CAD with normal LV function but with valvular heart disease, specifically severe AR. 4. Essential hypertension. 5. Hyperlipidemia. 6. DJD. 7. Patient does make mention of neck pain which is new over the past month. PLANS 1. The patient received IV calcium and bicarb. I will give an amp of dextrose followed by IV insulin. Nephrology has already been consulted and stat dialysis orders were given. Unit #: [id number] #: [id number] Patient: KENNEDY YEH 2. Plain x-rays of the C-spine in the morning. 3. Obtain stool cultures. 4. Supportive treatment. 5. SCDs for DVT prophylaxis. 6. Verify home medicines. Dictated by Dilma Jorge M.D. AML/df TD: 12/11/2016 05:27 JOB #: [id number] HISTORY AND PHYSICAL Page 1 of 1 X Dilma Jorge MD X HISTORY AND PHYSICAL
--- NOTE | ~2016-12-10 | DS ---
Unit #: [id number] #: [id number] Patient: KENNEDY CRABTREE [id number] [address] [address] [id number] I MR#: [id number] NAME: KENNEDY CRABTREE. ROOM: 561 Age: 66 Sex: M Admission Date: 12/10/2016 : 1950 Discharge Date: 12/11/2016 Attending Physician: Flores Lopez M.D. Primary Care Physician: [facility]. DISCHARGE SUMMARY PRIMARY CARE PROVIDER [facility]. PRINCIPAL DIAGNOSES 1. Hyperkalemia secondary to missed hemodialysis. 2. End-stage renal disease with history of noncompliance with hemodialysis. 3. Nausea, vomiting, diarrhea secondary to uremia, now resolved. 4. Nonobstructive coronary artery disease. 5. Severe aortic regurgitation. 6. Hypertension. 7. Hyperlipidemia. 8. Neck pain with pending neck x-ray. 9. Mild tachycardia. 10. Tobaccoism. CONSULTANTS Dr. Bates, Nephrology. PROCEDURES 1. Stat hemodialysis on 12/11/2016, which occurred without complication. 2. X-ray of the neck, which is currently pending. 3. KUB on 12/10/2016 with no acute findings. Tortuous descending thoracic aorta noted. Arterial calcifications present in the pelvis. CLINICAL HISTORY AND HOSPITAL COURSE Mr. Crabtree is a 66-year-old male with a history of end-stage renal disease, maintained on hemodialysis on Wednesday, , Wednesday, who presents to the emergency department with nausea, vomiting, diarrhea after missing 2 sessions of hemodialysis. The patient was found to have significant hyperkalemia in the emergency department with a potassium of 7.1 with associated EKG changes. The patient was treated with sodium bicarbonate, calcium chloride, Kayexalate, insulin, and subsequently admitted. Nephrology was consulted. The patient went to emergent hemodialysis. Following day on hemodialysis, the patient feels fine. His nausea, vomiting, diarrhea has completely resolved. He has had no abdominal pain. No chest pain. No shortness of breath. Lab work this morning following hemodialysis is still currently pending. With this blood work and depending on Nephrology evaluation, the patient will likely be discharged home later today with plans to continue hemodialysis tomorrow on an outpatient basis. The patient states he will be compliant and does have transportation to dialysis. Unit #: [id number] #: [id number] Patient: KENNEDY CRABTREE Last evening, the patient was complaining of some neck pain to which he is not complaining much of this morning. Cervical x-rays have been ordered and these will be done assuming no acute findings. This can be followed up as an outpatient. DISCHARGE CONDITION Stable. DISCHARGE STATUS Discharged to home. DISCHARGE MEDICATIONS Metoprolol succinate 50 mg b.i.d., Pravachol 80 mg daily, aspirin 81 mg daily, Renvela 800 mg p.o. t.i.d. with meals, PhosLo 667 mg two tablets p.o. t.i.d. with meals. DISCHARGE INSTRUCTIONS The patient was instructed to continue hemodialysis on Wednesday, , Wednesday. He can increase activity as tolerated. He should refrain from any further tobacco use. FOLLOWUP The patient will follow up with Dr. Joyce, his primary protocol officer as instructed. We will follow up with [facility] in approximately 2 weeks. Dictated by... Flores Lopez M.D. SANDY/dalia TD: 12/13/2016 23:50 JOB #: [id number] DISCHARGE SUMMARY Page 1 of 1 X Flores Lopez MD X DISCHARGE SUMMARY
--- NOTE | ~2016-12-10 | CR2 ---
[facility] A Service of [facility] RADIOLOGY TEXT RESULTS PATIENT: KENNEDY YEH LOCATION: [facility] 561-01 : [birth year] UNIT #: [id number] AGE: [address]: Flores Lopez MD SEX: M ORDER DR: [id number] [facility] [address] [place], [place] [address] [id number] I MR#: [id number] Acc #: [id number] NAME: KENNEDY YEH. : 1950 SEX: M STUDY DATE/TIME: 12/10/2016 21:08 UNIT: [facility] ROOM: [facility] STUDY DESCRIPTION: CR Abdomen Acute Series Attending Physician: Dilma Jorge M.D. Ordering Physician: Del Mijares M.D. Primary Care Physician: [facility] MEDICAL IMAGING REPORT This report is preliminary unless electronic signature is present EXAM Acute abdomen series HISTORY Abdomen pain and vomiting since yesterday. FINDINGS Flat and upright views of the abdomen and upright view of the chest demonstrate the bowel gas pattern is normal. No bowel dilatation or displacement. No free air. Arterial calcifications in the pelvis. Upright view of the chest demonstrates the cardiac size and pulmonary vascularity are normal. Mildly tortuous descending thoracic aorta. No airspace infiltrates or effusions. Left axillary stent. IMPRESSION No acute findings. Bowel gas pattern is normal. No active disease in the lungs. Dictated by... Piotr Lynch M.D. THIS IS AN ELECTRONICALLY VERIFIED REPORT Piotr Lynch M.D. at 12/11/2016 11:44 PM DFL/kaylin TD: 12/11/2016 05:07 JOB #: [id number] MEDICAL IMAGING REPORT Page 1 of 1 COPY
--- NOTE | ~2016-12-10 | EKG ---
PATIENT: KENNEDY YEH UNIT #: [id number] Ventricular Rate: 85 BPM Atrial Rate: 85 BPM P-R Interval: 158 ms QRS Duration: 88 ms Q-T Interval: 424 ms QTC Calculation(Bezet): 504 ms P [place]: 62 degrees Calculated R [place]: -32 degrees Calculated T [place]: 40 degrees Diagnosis Line: Normal sinus rhythm Diagnosis Line: Possible Left atrial enlargement Diagnosis Line: Left axis deviation Diagnosis Line: Septal infarct , age undetermined Diagnosis Line: Prolonged QT Diagnosis Line: Abnormal ECG Diagnosis Line: No previous ECGs available Diagnosis Line: Confirmed by VENUS FORD MD ([id number]) on Diagnosis Line: 12/11/2016 7:33:41 AM INTERPRETING MD: LOGAN ORDONEZ
--- NOTE | ~2016-12-10 | DS ---
Unit #: [id number] #: [id number] Patient: KENNEDY YEH [id number] [address] [address] [id number] I MR#: [id number] NAME: KENNEDY YEH ROOM: [facility] Age: 66 Sex: M Admission Date: 12/10/2016 : 1950 Discharge Date: 12/11/2016 Attending Physician: Flores Lopez M.D. Primary Care Physician: [facility]. DISCHARGE SUMMARY ADDENDUM The patient was seen in consultation by Nephrology, who agreed the patient can be discharged today. X-ray of the cervical spine revealed degenerative changes and bony changes of renal osteodystrophy, but no other acute findings. This can be followed up as an outpatient. Dictated by... Juventino Cruz/dalia TD: 12/14/2016 01:07 JOB #: [id number] DISCHARGE SUMMARY Page 1 of 1 X Flores Lopez MD DISCHARGE SUMMARY
--- NOTE | ~2016-12-10 | CR58 ---
[facility] A Service of [facility] & [facility] RADIOLOGY TEXT RESULTS PATIENT: KENNEDY YEH LOCATION: [facility] [id number] : 52 UNIT #: [id number] AGE: [address]: Flores Lopez MD SEX: M ORDER DR: [id number] [facility] [address] [place], [place] [address] [id number] MR#: [id number] Acc #: [id number] NAME: KENNEDY YEH. : 1950 SEX: M STUDY DATE/TIME: 12/11/2016 07:20 UNIT: [facility] ROOM: [facility] STUDY DESCRIPTION: CR Cervical Spine 2 or 3 Views Attending Physician: Flores Lopez M.D. Ordering Physician: Dilma Jorge M.D. Primary Care Physician: [facility], [facility]. MEDICAL IMAGING REPORT This report is preliminary unless electronic signature is present EXAM Cervical spine series, 12/11/2016, 0720 hours. CLINICAL HISTORY 66-year-old man complaining of posterior neck pain for 1 month. No reported injury or radicular symptoms. COMPARISON None. FINDINGS AP, lateral and open mouth views are performed. The cervical spine is normally aligned. The bones diffusely demonstrate increased density most likely representing renal osteodystrophy. There is disc height loss at C3-4, C4-5, C5-6 and C6-7. There is posterior uncovertebral spurring, most prominent C5-6 and C6-7. There is calcification in the soft tissues anterior to the lower cervical spine also felt likely related to renal osteodystrophy. There is calcification in the posterior nuchal ligament. C1-2 articulation is normal. IMPRESSION There is multilevel degenerative disc disease with disc height loss and spurring. The bones have a diffusely sclerotic or mottled appearance most likely representing renal osteodystrophy as was seen on a prior CT abdomen and pelvis of 07/20/2016. There is no acute fracture or subluxation. Dictated by... Angie Altman M.D. THIS IS AN ELECTRONICALLY VERIFIED REPORT Angie Altman M.D. at 12/11/2016 2:31 PM [facility] A Service of [facility] & [facility] RADIOLOGY TEXT RESULTS PATIENT: KENNEDY YEH LOCATION: [place] [address] : 54 UNIT #: [id number] AGE: [address]: Flores Lopez MD SEX: M ORDER DR: TD: 12/11/2016 12:24 JOB #: [id number] MEDICAL IMAGING REPORT Page 1 of 1 COPY
[~2016-12-10 17:46] MED LIST changes: +ASPIRIN81 MG PO; +METOPROLOL SUCC50 MG PO; +OS-CAL 500500 MG PO; +PRAVASTATIN SOD80 MG PO; +SENSIPAR30 M1 PO; +TUMS500 M1 PO
[2016-12-10 19:09] LABS: BASOPHIL# 0.1 X10e3 (0-0.3); BASOPHIL% 1.5 % (0-2.5); EOSINOPHIL% 0.2 % (0.0-7.0); HEMATOCRIT 37.8 % (38.0-50.0); HEMOGLOBIN 12.4 gm/dL (13.0-16.0); LYMPHOCYTE# 1.2 X10e3 (1.0-3.5); MEAN CELL VOLUME 92.8 FL (83-96); MEAN CORPUSCULAR HEMOGLOBIN 30.4 PG (28-34); MEAN CORPUSCULAR HGB CONC 32.7 g/dL (30-36); MEAN PLATELET VOLUME 8.2 FL (6.5-11.5); MONOCYTE# 0.3 X10e3 (0-1.0); MONOCYTE% 3.2 % (3.0-12.0); NEUTROPHIL# 7.6 X10e3 (1.5-7.1); NEUTROPHIL% 82.1 % (40-75); PLATELET COUNT 292 X10e3 (140-420); RED BLOOD COUNT 4.08 X10e (3.90-5.60); RED CELL DISTRIBUTION WIDTH 16.1 % (11.0-15.5); WHITE BLOOD COUNT 9.2 X10e3 (4.0-10.5)
[2016-12-10 19:10] LABS: DIFF IND NO
[2016-12-10 19:44] LABS: ALBUMIN SERUM 4.2 g/dL (3.5-5.0); BILIRUBIN, DIRECT 0.1 mg/dL (0.0-0.2); BILIRUBIN,INDIRECT 1.4 mg/dL (0.0-0.9); BILIRUBIN,TOTAL 1.5 mg/dL (0.2-2.0); BUN/CREATININE RATIO 4.56; CALCIUM SERUM 8.3 mg/dL (8.4-10.2); CREATININE SERUM 19.7 mg/dL (0.6-1.4); GLOM FILT RATE Estimated 2.5 mL/min (>60); PROTEIN TOTAL SERUM 8.8 g/dL (6.0-8.3)
[2016-12-10 19:47] LABS: POTASSIUM 7.1 mmol/L (3.5-5.1)
[2016-12-10 22:15] LABS: POC - CKMB 9.8 ng/mL (0.0-7.9); POC - TROPONIN <0.05 ng/mL (<=0.05)
[2016-12-11] MEDS ORDERED: ASPIRIN81 MG PO (00:21)
[2016-12-11] MEDS ORDERED: TOPROL XL 50 MG50 MG PO (00:22)
[2016-12-11] MEDS ORDERED: RENVELA800 MG DOB (00:22)
[2016-12-11] MEDS ORDERED: PHOSLO667 M1 PO (00:23)
[2016-12-11 08:23] LABS: BASOPHIL# 0.1 X10e3 (0-0.3); BASOPHIL% 0.9 % (0-2.5); EOSINOPHIL# 0.1 X10e3 (0-0.7); EOSINOPHIL% 0.7 % (0.0-7.0); HEMATOCRIT 36.6 % (38.0-50.0); LYMPHOCYTE# 1.9 X10e3 (1.0-3.5); MEAN CELL VOLUME 92.6 FL (83-96); MEAN CORPUSCULAR HEMOGLOBIN 30.4 PG (28-34); MEAN CORPUSCULAR HGB CONC 32.9 g/dL (30-36); MEAN PLATELET VOLUME 8.3 FL (6.5-11.5); MONOCYTE# 0.9 X10e3 (0-1.0); MONOCYTE% 9.7 % (3.0-12.0); NEUTROPHIL# 6.6 X10e3 (1.5-7.1); NEUTROPHIL% 68.7 % (40-75); PLATELET COUNT 229 X10e3 (140-420); RED BLOOD COUNT 3.95 X10e (3.90-5.60); RED CELL DISTRIBUTION WIDTH 16.2 % (11.0-15.5); WHITE BLOOD COUNT 9.6 X10e3 (4.0-10.5)
[2016-12-11 08:24] LABS: DIFF IND NO
[2016-12-11 09:04] LABS: CALCIUM SERUM 8.8 mg/dL (8.4-10.2)
[2016-12-11 09:08] LABS: BUN/CREATININE RATIO 3.08; CREATININE SERUM 9.4 mg/dL (0.6-1.4); GLOM FILT RATE Estimated 6.1 mL/min (>60); POTASSIUM 4.3 mmol/L (3.5-5.1)
== END 2016-12-11 16:40 | disposition home or self-care (01) | DRG 640 ==
LOC: CED 17:46 → CEDOF 23:07 → CED 23:07 → CEDOF 23:15 → C5B 23:53 → CEDOF 23:53 → C5B 12-11 07:40
PROVIDERS: Emergency Medicine; Internal Medicine
PROC: 5A1D00Z (ICD-10-PCS; principal; 2016-12-11)
DX: E87.5 Hyperkalemia (principal); N18.6 End stage renal disease; I12.0 Hypertensive chronic kidney disease with stage 5 chronic kidney disease or end stage renal disease; Z91.15 Patient's noncompliance with renal dialysis; F17.210 Nicotine dependence, cigarettes, uncomplicated; Z99.2 Dependence on renal dialysis; R00.0 Tachycardia, unspecified; I35.1 Nonrheumatic aortic (valve) insufficiency; E83.39 Other disorders of phosphorus metabolism
CPT/HCPCS: 36415; 72040; 74022; 80048; 80076; 82553; 83690; 84484; 85025; 93005; 96374; 96375; 99285; J2405